=== PATIENT | female | born 1995 | race Caucasian/White ===

== ENCOUNTER 2024-01-28 03:16 | Observation (INO) | payer BC ==
[2024-01-28] MEDS ORDERED: Ibuprofen 800 MG TAB PO PRN (12:10)
[2024-01-28 13:37] VITALS: BMI 22.3
[2024-01-29] MEDS: Acetaminophen 325 MG TAB PO PRN (10:05)
[2024-01-29 11:33] VITALS: TEMP 98.9
[2024-01-29 11:42] VITALS: BP 133/69
[2024-01-30 09:10] LABS: Complement-C4 30 mg/dL (15-57)
[2024-01-30 11:30] LABS: ANA Symphony (Qualitative) Negative (Negative); ANA Symphony (Quantitative) 0.1 Ratio (< 0.7 Negative); Mitochondrial Ab 0.6 U/mL (<4 Negative); Thyroid Peroxidase IgG Ab 7.5 IU/mL (<25 Normal); dsDNA IgG Antibody 0.9 IU/mL (<10 Negative)
== END 2024-01-29 12:33 | disposition home or self-care (01) ==
LOC: OBS 10:12 → INTOOBSV 10:12
PROVIDERS: ADMIT Family Medicine; ATTEND Family Medicine
PROC: B246YZZ Ultrasonography of Right and Left Heart using Other Contrast (ICD-10-PCS; principal; 2024-01-28)
DX: I44.1 Atrioventricular block, second degree (principal); I44.2 Atrioventricular block, complete; O72.1 Other immediate postpartum hemorrhage; O24.439 Gestational diabetes mellitus in the puerperium, unspecified control; O13.5 Gestational [pregnancy-induced] hypertension without significant proteinuria, complicating the puerperium; O70.9 Perineal laceration during delivery, unspecified; Z79.899 Other long term (current) drug therapy
CPT/HCPCS: 36415; 83516; 86038; 86160; 86225; 86376; 86618; 93005; 93010; 93306; G0378